=== PATIENT | female | born 1960 | race Caucasian/White ===

== ENCOUNTER 2017-08-12 11:28 | Emergency (ER) | payer MEDICAID ==
[~2017-08-12] VITALS: Ht 165.1 cm; Wt 77.1 kg
[~2017-08-12 11:28] MED LIST: AMLODIPINE BESYL5 MG ORAL; IBUPROFEN600 MG ORAL; METFORMIN HCL500 M1 ORAL; MICARDIS20 MG ORAL; NORCO 5/3251 TAB ORAL; PREVACID30 MG ORAL; RANITIDINE HCL150 MG ORAL
[2017-08-12 11:42] VITALS: BP 123/77
[2017-08-12] MEDS ORDERED: LORAZEPAM1 MG ORAL (11:45)
[2017-08-12] MEDS ORDERED: AMBIEN5 MG ORAL (11:45)
[2017-08-12] MEDS ORDERED: AMLODIPINE BESY10 MG ORAL (11:45)
[2017-08-12] MEDS ORDERED: METFORMIN HCL500 M1 ORAL (11:45)
[2017-08-12] MEDS ORDERED: GLIPIZIDE5 MG ORAL (11:45)
[2017-08-12] MEDS ORDERED: LEXAPRO10 MG ORAL (11:45)
[2017-08-12] MEDS ORDERED: Acetaminophen 500mg (ES) tab ORAL ONE (12:15)
--- NOTE | 2017-08-12 12:37 | Diagnostic Imaging Report ---
Indications: Severe headache Technique: Spiral acquisitions obtained through the brain. Angled axial and coronal 5 x 5 mm slices were reconstructed. Total dose length product 1421 mGycm. CTDI vol(s) 70 mGy. Dose reduction achieved using automated exposure control Comparison: None Findings: There is evidence of prior right frontal craniotomy. Deep to the craniotomy, there is a large area of encephalomalacia. No acute intracranial hemorrhage or edema. No mass effect nor midline shift. Normal garcia-white differentiation. Normal size ventricles. Minimal prominence of the extra-axial CSF spaces. Impression: Evidence of prior right frontal craniotomy. Underlying encephalomalacia presumably relates to this. Correlate with surgical history Negative for acute intracranial bleed or mass effect. The CT scanner at [facility] is accredited by the [employer] and the scans are performed using protocols designed to limit radiation exposure to as low as reasonably achievable to attain images of sufficient resolution adequate for diagnostic evaluation.
--- NOTE | 2017-08-12 12:39 | Emergency Room Report ---
History of Present Illness General Chief Complaint: Headache Source: Patient, EMS Present Illness HPI Patient 57-year-old female presented after increased headache for the past 5 days. Patient gradual onset of symptoms. She reports having increased photophobia. She reports having fever up to 103. The patient denied any vomiting. She reports having a nonproductive cough. She reports having prior craniotomy many years ago Allergies: Coded Allergies: No Known Allergies (Unverified , 05/20/16) Patient History Reviewed Nursing Documentation: PMH: Agreed, PSxH: Agreed Nursing Documentation-PMH Hx Hypertension: Yes Hx Asthma: No Hx COPD: No Hx Diabetes: Yes Hx Cancer: No Hx Gastrointestinal Problems: Yes - GERD Hx Dialysis: No History Of Psychiatric Problem: Yes - Anxiety Hx Neurological Problems: Yes - BRAIN HEMORRHAGE - BRAIN SURGERY '96 Hx Cerebrovascular Accident: Yes Hx Seizures: No Physical Exam Vital Signs Date Time Temp Pulse Resp B/P (MAP) Pulse Ox O2 Delivery O2 Flow Rate FiO2 08/12/17 11:32 98.4 94 18 123/82 95 Room Air Medical Decision Making Diagnostic Impression: Primary Impression: Headache ER Course Patient is a 57-year-old female brought in by EMS for headache.Differential diagnoses included but was not limited to skull fracture, subarachnoid hemorrhage, meningitis, aneurysm, mass lesion, intracranial hemorrhage. Because of complexity of patient's case laboratory testing and imaging studies were ordered. The patient was noted to have recently been febrile. Patient noted have a nonproductive cough. Chest x-ray one view interpreted by radiology showed no evident infiltrate. CT of head read by radiologist showed postsurgical changes without evident intracranial hemorrhage. Patient was noted to have concerning history for possible meningitis. The patient declined spinal tap despite risks of not being able to diagnose meningitis or encephalitis. I laboratory testing was notable for elevated lactic acid level consistent with hypoperfusion. The patient was discussed with Dr. Coats for capitated hospital transfer due to concerning history. The patient was advised risk benefits alternatives of leaving AGAINST MEDICAL ADVICE and he indicated understanding and all questions are answered patient still continued want to leave and signed AGAINST MEDICAL ADVICE. Despite risks including but not limited to disability and worsening of current lifestyle. The patient appears to have capacity is awake and alert at the time of AMA. Patient was advised to return at anytime. Labs Test 08/12/17 12:30 08/12/17 14:03 White Blood Count 7.1 K/UL (4.8-10.8) Red Blood Count 4.00 M/UL (4.20-5.40) Hemoglobin 11.5 G/DL (12.0-16.0) Hematocrit 36.2 % (37.0-47.0) Mean Corpuscular Volume 90 FL (80-99) Mean Corpuscular Hemoglobin 28.8 PG (27.0-31.0) Mean Corpuscular Hemoglobin Concent 31.9 G/DL (32.0-36.0) Red Cell Distribution Width 12.7 % (11.6-14.8) Platelet Count 176 K/UL (150-450) Mean Platelet Volume 12.6 FL (6.5-10.1) Neutrophils (%) (Auto) 57.3 % (45.0-75.0) Lymphocytes (%) (Auto) 34.8 % (20.0-45.0) Monocytes (%) (Auto) 7.0 % (1.0-10.0) Eosinophils (%) (Auto) 0.1 % (0.0-3.0) Basophils (%) (Auto) 0.9 % (0.0-2.0) Urine Color Pale yellow Urine Appearance Clear Urine pH 7 (4.5-8.0) Urine Specific [place] 1.005 (1.005-1.035) Urine Protein Negative (NEGATIVE) Urine Glucose (UA) Negative (NEGATIVE) Urine Ketones Negative (NEGATIVE) Urine Occult Blood 1+ (NEGATIVE) Urine Nitrite Negative (NEGATIVE) Urine Bilirubin Negative (NEGATIVE) Urine Urobilinogen Normal MG/DL (0.0-1.0) Urine Leukocyte Esterase Negative (NEGATIVE) Urine RBC 0-2 /HPF (0 - 2) Urine WBC 0-2 /HPF (0 - 2) Urine Squamous Epithelial Cells Occasional /LPF Urine Bacteria Occasional /HPF (NONE) Sodium Level 139 MMOL/L (136-145) Potassium Level 4.1 MMOL/L (3.5-5.1) Chloride Level 105 MMOL/L (98-107) Carbon Dioxide Level 26 MMOL/L (21-32) Anion Gap 8 mmol/L (5-15) Blood Urea Nitrogen 5 mg/dL (7-18) Creatinine 0.7 MG/DL (0.55-1.30) Estimat Glomerular Filtration Rate > 60 mL/min (>60) Glucose Level 103 MG/DL (74-106) Calcium Level 8.8 MG/DL (8.5-10.1) Total Bilirubin 0.5 MG/DL (0.2-1.0) Aspartate Amino Transf (AST/SGOT) 76 U/L (15-37) Alanine Aminotransferase (ALT/SGPT) 78 U/L (12-78) Alkaline Phosphatase 144 U/L (46-116) Total Creatine Kinase 56 U/L (26-308) Creatine Kinase MB 0.7 NG/ML (0.0-3.6) Creatine Kinase MB Relative Index 1.2 Troponin I 0.019 ng/mL (0.000-0.056) Pro-B-Type Natriuretic Peptide 27 pg/mL (0-125) Total Protein 8.9 G/DL (6.4-8.2) Albumin 3.3 G/DL (3.4-5.0) Globulin 5.6 g/dL Albumin/Globulin Ratio 0.6 (1.0-2.7) Lactic Acid Level 2.30 mmol/L (0.66-2.22) Last Vital Signs Date Time Temp Pulse Resp B/P (MAP) Pulse Ox O2 Delivery O2 Flow Rate FiO2 08/12/17 11:42 98.5 90 21 123/77 95 Room Air Status: improved Disposition: AGAINST MEDICAL ADVICE Condition: Unknown GarthRomeo Aug 12, 2017 12:39
[2017-08-12 12:57] LABS: APPEARANCE,URINE CLEAR; KETONES,URINE NEGATIVE (NEGATIVE); LEUKOCYTE ESTERASE ,URINE NEGATIVE (NEGATIVE); NITRITE,URINE NEGATIVE (NEGATIVE); PH,URINE 7 (4.5-8.0); PROTEIN,URINE NEGATIVE (NEGATIVE); UROBILINOGEN,URINE NORMAL MG/DL (0.0-1.0)
[2017-08-12 12:58] LABS: BASOPHILS % (AUTO) 0.9 % (0.0-2.0); EOSINOPHILS % (AUTO) 0.1 % (0.0-3.0); LYMPHOCYTES % (AUTO) 34.8 % (20.0-45.0); MEAN CORPUSCULAR HEMOGLOBIN 28.8 PG (27.0-31.0); MEAN CORPUSCULAR HGB CONC 31.9 G/DL (32.0-36.0); MEAN CORPUSCULAR VOLUME 90 FL (80-99); MEAN PLATELET VOLUME 12.6 FL (6.5-10.1); NEUTROPHILS % (AUTO) 57.3 % (45.0-75.0); PLATELET COUNT 176 K/UL (150-450); RED CELL DISTRIBUTION WIDTH 12.7 % (11.6-14.8); WHITE BLOOD COUNT 7.1 K/UL (4.8-10.8)
[2017-08-12 13:05] LABS: BACTERIA,URINE OCCASIONAL /HPF; RBC,URINE 0-2 /HPF (0 - 2); SQUAMOUS EPITHELIAL CELL,UR OCCASIONAL /LPF (NONE/OCC); WBC,URINE 0-2 /HPF (0 - 2)
[2017-08-12 13:08] LABS: ANION GAP 8 mmol/L (5-15); CALCIUM 8.8 MG/DL (8.5-10.1); CARBON DIOXIDE 26 MMOL/L (21-32); CHLORIDE 105 MMOL/L (98-107); CREATININE 0.7 MG/DL (0.55-1.30); GLOMERULAR FILTRATION RATE > 60 mL/min (>60); POTASSIUM 4.1 MMOL/L (3.5-5.1); SODIUM 139 MMOL/L (136-145)
[2017-08-12 13:10] VITALS: BP 109/76
[2017-08-12 13:28] LABS: ALANINE AMINOTRANSFERASE 78 U/L (12-78); ALBUMIN/GLOBULIN RATIO 0.6 (1.0-2.7); ASPARTATE AMINO TRANSFERASE 76 U/L (15-37); CKMB 0.7 NG/ML (0.0-3.6); TOTAL PROTEIN 8.9 G/DL (6.4-8.2)
--- NOTE | 2017-08-12 13:34 | Diagnostic Imaging Report ---
Indication: SOB, cough x5 days Technique: One view of the chest Comparison: none Findings: Lungs and pleural spaces are clear. Heart size is normal. The aorta is tortuous Impression: No acute process
[2017-08-12 13:38] LABS: REFLEX LACTIC ACID YES OR NO YES
[2017-08-12] MEDS ORDERED: Metoclopramide 10mg/2ml Inj IVP ONE (14:00)
[2017-08-12 14:48] VITALS: BP 111/75
--- NOTE | 2017-08-13 15:41 | Cardiology Report ---
APPROVED REPORT EKG Measurement Heart [id number] Normal sinus rhythm Low voltage QRS Borderline ECG
== END 2017-08-12 14:48 | disposition left against medical advice (07) ==
LOC: EDBD 11:28 → EDUNIT# 11:28 → EMR 12:00
DX: R51 Headache (principal); R50.9 Fever, unspecified; R05 Cough; I10 Essential (primary) hypertension; E11.9 Type 2 diabetes mellitus without complications; Z87.19 Personal history of other diseases of the digestive system; K21.9 Gastro-esophageal reflux disease without esophagitis; F41.9 Anxiety disorder, unspecified; Z86.69 Personal history of other diseases of the nervous system and sense organs; Z86.73 Personal history of transient ischemic attack (TIA), and cerebral infarction without residual deficits; Z53.21 Procedure and treatment not carried out due to patient leaving prior to being seen by health care provider
CPT/HCPCS: 36415; 70450; 71010; 80053; 81003; 82550; 82553; 83605; 83880; 84484; 85025; 86710; 87040; 93005; 96374; 96375; 99284; J2765

== ENCOUNTER 2018-08-30 12:51 | Emergency (ER) | payer MEDICAID ==
[~2018-08-30] VITALS: Ht 160 cm; Wt 90.7 kg
[~2018-08-30 12:51] MED LIST changes: +AMBIEN5 MG ORAL; +AMLODIPINE BESY10 MG ORAL; +GLIPIZIDE5 MG ORAL; +LEXAPRO10 MG ORAL; +LORAZEPAM1 MG ORAL
[2018-08-30] MEDS ORDERED: COZAAR50 MG ORAL (13:09)
[2018-08-30 13:18] VITALS: BP 125/85
[2018-08-30] MEDS ORDERED: Morphine Sulfate 4mg/ml Inj (IV/IM USE ONLY) IVP ONE (13:30)
--- NOTE | 2018-08-30 13:48 | Emergency Room Report ---
History of Present Illness General Chief Complaint: Upper Extremity Injury Source: Patient Present Illness HPI 68-year-old female with history of diabetes and neuropathy here complaining of 5 hours of pain in the right shoulder and right elbow post fall. Patient reports an due to severe neuropathy in her legs she could not keep her balance and fell on her right side of body using her right shoulder and elbow to prevent her from a heavy fall. Denies head injury, loss of consciousness, dizziness, vision changes, nausea vomiting. Vision is rating the pain 10 out of 10 with radiation to the right forearm, has taken 100 mg of tramadol 4 hours. denies Tingling and numbness on the affected side. Patient is sitting uncomfortably unable to say for sure at all due to pain in her right elbow and is requesting something for her pain. Denies chest pain, shortness of breath, palpitation, no other associated symptoms Allergies: Coded Allergies: No Known Allergies (Unverified , 05/20/16) Patient History Past Medical History: see triage record Pertinent Family History: none Now: No Immunizations: UTD Reviewed Nursing Documentation: PMH: Agreed; PSxH: Agreed Nursing Documentation-PMH Past Medical History: No History, Except For Hx Hypertension: Yes Hx Asthma: No Hx COPD: No Hx Diabetes: Yes Hx Cancer: No Hx Gastrointestinal Problems: Yes - GERD Hx Dialysis: No Hx Neurological Problems: Yes - BRAIN HEMORRHAGE - BRAIN SURGERY '96 Hx Cerebrovascular Accident: Yes Hx Seizures: No Review of Systems All Other Systems: negative except mentioned in HPI Physical Exam Vital Signs Date Time Temp Pulse Resp B/P (MAP) Pulse Ox O2 Delivery O2 Flow Rate FiO2 08/30/18 13:02 98.1 87 18 126/88 98 Sp02 EP Interpretation: reviewed, normal General Appearance: normal inspection, well appearing, no apparent distress, alert, GCS 15 Head: normocephalic, atraumatic Eyes: bilateral eye normal inspection, bilateral eye PERRL ENT: normal ENT inspection, hearing grossly normal, normal pharynx Neck: normal inspection, full range of motion, supple Respiratory: normal inspection, chest non-tender, lungs clear, normal breath sounds, no rhonchi, no respiratory distress Cardiovascular #1: normal inspection, no edema, no murmur Cardiovascular #2: 2+ radial (R), 2+ radial (L) Gastrointestinal: normal inspection, non tender, soft, no mass Rectal: deferred Genitourinary: normal inspection, deferred Musculoskeletal: back normal, digits/nails normal, gait/station normal, decreased range of motion, inflammation - right shoulder, swelling - right elbow Neurologic: normal inspection, alert, oriented x3, responsive, overhead line worker III-XII nml as tested Psychiatric: normal inspection, judgement/insight normal, memory normal, other - pt appears hystrionic Skin: normal inspection, normal color, no rash, warm/dry Lymphatic: normal inspection, no adenopathy, axilla node tender (R) Procedures Splinting Splinting : Consent: Verbal Splint: sugar-tong Pre-Proc Neuro Vasc Exam: normal Post-Proc Neuro Vasc Exam: normal Patient Tolerated: Well Complications: None Medical Decision Making PA Attestation . All diagnoses and treatment plans were reviewed and discussed with my supervising physician Dr. Liang Diagnostic Impression: Primary Impression: Right radial head fracture Additional Impression: Contusion of right shoulder ER Course 68-year-old female with history of diabetes and neuropathy here complaining of 5 hours of pain in the right shoulder and right elbow post fall. Patient reports an due to severe neuropathy in her legs she could not keep her balance and fell on her right side of body using her right shoulder and elbow to prevent her from a heavy fall. Denies head injury, loss of consciousness, dizziness, vision changes, nausea vomiting. Vision is rating the pain 10 out of 10 with radiation to the right forearm, has taken 100 mg of tramadol 4 hours. denies Tingling and numbness on the affected side. Patient is sitting uncomfortably unable to say for sure at all due to pain in her right elbow and is requesting something for her pain. Denies chest pain, shortness of breath, palpitation, no other associated symptoms Ddx considered but are not limited to right elbow fracture, shoulder fracture, right elbow dislocation, neuropathic pain Vital signs: are WNL, pt. is afebrile H&PE are most consistent with fracture of right radial head, right shoulder contusion ORDERS: x-ray of right elbow and right shoulder, morphine 4 mg IV, Zofran 4 mg IV,. Splint and sling ED INTERVENTIONS: None required at this time. DISCHARGE: At this time pt. is stable for d/c to home. Will provide printed patient care instructions, and any necessary prescriptions. Care plan and follow up instructions have been discussed with the patient prior to discharge. Other X-Ray Diagnostic Results Other X-Ray Diagnostic Results : X-Ray ordered: right shoulder and right elbow # of Views/Limited Vs Complete: 2 View Indication: Swelling EP Interpretation: Yes PA Xray: by supervising MD, and agrees with findings. Interpretation: other - radial head fx right Impression: Other - radial head fx right PA Scribe Text FINDINGS: Bones/joints: Unremarkable. Normal alignment is seen at the acromioclavicular and glenohumeral joints. No visible displaced fracture or dislocation. No osseous erosions. Coracoclavicular and subacromial spaces appear within normal limits. The clavicle and scapula appear intact. Soft tissues: Unremarkable. FINDINGS: Bones/joints: Minimally depressed radial head fracture involving the articular surface. Remaining visualized osseous structures appear intact. Elevation of the elbow fat pads suggesting underlying joint effusion. Soft tissues: No radiodense foreign bodies. No soft tissue gas lucencies. IMPRESSION: 1. Minimally depressed radial head fracture involving the articular surface. 2. Elevation of the elbow fat pad suggesting underlying joint effusion. Last Vital Signs Date Time Temp Pulse Resp B/P (MAP) Pulse Ox O2 Delivery O2 Flow Rate FiO2 08/30/18 13:02 98.1 87 18 126/88 98 Disposition: HOME, SELF-CARE Condition: Stable Referrals: [facility],REFERRING (PCP) Patient Instructions: Elbow Fracture, Simple, Shoulder Pain, [id number] Additional Instructions: follow with your primary care provider for referral to orthopedic surgeon and pain management, do not take tramadol more than your primary doctor has advised U he can take ibuprofen as needed no other narcotics can be administered and prescribed at this time Joceline Tubbs Aug 30, 2018 13:48
--- NOTE | 2018-08-30 14:08 | Diagnostic Imaging Report ---
EXAM: XR Right Elbow Complete, 3 or More Views CLINICAL HISTORY: TRAUMA TECHNIQUE: Frontal, lateral and oblique views of the right elbow. COMPARISON: No relevant prior studies available. FINDINGS: Bones/joints: Minimally depressed radial head fracture involving the articular surface. Remaining visualized osseous structures appear intact. Elevation of the elbow fat pads suggesting underlying joint effusion. Soft tissues: No radiodense foreign bodies. No soft tissue gas lucencies. IMPRESSION: 1. Minimally depressed radial head fracture involving the articular surface. 2. Elevation of the elbow fat pad suggesting underlying joint effusion.
--- NOTE | 2018-08-30 14:08 | Diagnostic Imaging Report ---
EXAM: XR Right Shoulder Complete, 2 or More Views CLINICAL HISTORY: TRAUMA TECHNIQUE: Two or more views of the right shoulder. COMPARISON: No relevant prior studies available. FINDINGS: Bones/joints: Unremarkable. Normal alignment is seen at the acromioclavicular and glenohumeral joints. No visible displaced fracture or dislocation. No osseous erosions. Coracoclavicular and subacromial spaces appear within normal limits. The clavicle and scapula appear intact. Soft tissues: Unremarkable. IMPRESSION: Unremarkable right shoulder x-rays.
[2018-08-30 15:18] VITALS: BP 126/83
== END 2018-08-30 15:18 | disposition home or self-care (01) ==
LOC: EMR 13:25
DX: S52.121A Displaced fracture of head of right radius, initial encounter for closed fracture (principal); S40.011A Contusion of right shoulder, initial encounter; E11.40 Type 2 diabetes mellitus with diabetic neuropathy, unspecified; I10 Essential (primary) hypertension; K21.9 Gastro-esophageal reflux disease without esophagitis; Z86.73 Personal history of transient ischemic attack (TIA), and cerebral infarction without residual deficits; W19.XXXA Unspecified fall, initial encounter; Y92.9 Unspecified place or not applicable
CPT/HCPCS: 29105; 73030; 73070; 96374; 96375; 99284; J2270; J2405